=== PATIENT | male | born 1965 | race Caucasian/White ===

== ENCOUNTER 2016-12-15 16:01 | Emergency (ER) | payer SELFPAY ==
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
== END 2016-12-15 18:30 | disposition home or self-care (01) ==
LOC: ER 16:01
DX: N20.2 Calculus of kidney with calculus of ureter (principal)